=== PATIENT | female | born 2000 | race Caucasian/White ===

== ENCOUNTER 2023-11-12 19:04 | Emergency (ER) | payer OTHER ==
[~2023-11-12] VITALS: Ht 167.6 cm; Wt 81.6 kg
[2023-11-12 19:26] VITALS: BP 103/70; PULSE 91; RESP 18; TEMP 97; O2SAT 98
[2023-11-12] MEDS ORDERED: KETOROLAC 30 MG/ML VIAL IM ONE (21:30)
[2023-11-12] MEDS ORDERED: IBUPROFEN 600 MG TAB PO ONE (22:05)
[2023-11-12] MEDS ORDERED: IBUP-2213 PO (23:24)
[2023-11-12] MEDS ORDERED: ACET-8905 PO (23:24)
[2023-11-12] MEDS ORDERED: LID5T TP (23:24)
[2023-11-12 23:45] VITALS: BP 103/70; PULSE 91; RESP 18; TEMP 97; O2SAT 98
== END 2023-11-12 23:45 | disposition home or self-care (01) ==
LOC: MED 19:04
DX: M54.16 Radiculopathy, lumbar region (principal); G89.29 Other chronic pain; M79.605 Pain in left leg; Z79.899 Other long term (current) drug therapy; Z79.1 Long term (current) use of non-steroidal anti-inflammatories (NSAID); Z88.1 Allergy status to other antibiotic agents
CPT/HCPCS: 72100; 73552; 99284; J1885